=== PATIENT | female | born 1970 | race Caucasian/White ===

== ENCOUNTER 2021-09-04 07:42 | Day surgery (SDC) | payer BC, SELFPAY ==
[2021-08-28 14:07] VITALS: BMI 23.0
--- NOTE | 2021-09-03 08:55 | P.CONAN_ITS ---
Documented by User: Kathleen Rice NP 09/03/21 10:33 HPI - Anesthesia Eval Consult details Narrative: 50yo F for Upper Endoscopy and Colonoscopy hx polysub abuse - ? last used - currently in remission per GI office note [facility] Past Medical History Medical History ADHD Anxiety Barretts esophagus History of alcohol abuse History of substance abuse Surgical History Surgical History (Updated 09/04/21 @ 07:53 by Ericka Somers RN) History of tonsillectomy History of tubal ligation Hx of esophagogastroduodenoscopy Social History Social History Patient Tobacco Use Status: Former Tobacco user Quit Date: 1 yr ago Tobacco use type: Cigarette Use of substances other than those prescribed or required for medical reasons: No Are you DNR?: No Advance Directives: No Advance Directives Information Provided: Yes Meds Allergies Allergy/AdvReac Type Severity Reaction Status Date / Time Penicillins Allergy Unknown Verified 09/04/21 08:13 Sulfa (Sulfonamide Allergy Unknown Verified 09/04/21 08:13 Antibiotics) Home Medications Medication Instructions Recorded Confirmed Last Taken Type bupropion HCl 300 mg 24 hr tablet, 1 tab PO QAM 08/28/21 08/28/21 Unknown History extended release cetirizine 10 mg tablet (Zyrtec) mg 08/28/21 Unknown History omeprazole 20 mg capsule,delayed 20 mg PO DAILY 08/28/21 08/28/21 Unknown History release Exam Exam Date and Time: September 03, 2021 0855 Height,Weight and Vital Signs: Height 5 ft 4 in Weight 60.781 kg Assessment and Plan Assessment Anesthesia Assessment: Chart Reviewed Documented by User: Rishi Parihs MD 09/13/21 21:47 [facility] Past Medical History Medical History ADHD Anxiety Barretts esophagus History of alcohol abuse History of substance abuse Family History Family history of problems with anesthesia: No Surgical History Surgical History (Updated 09/04/21 @ 07:53 by Ericka Somers RN) History of tonsillectomy History of tubal ligation Hx of esophagogastroduodenoscopy History of Problems with Anesthesia: No Social History Social History Patient Tobacco Use Status: Former Tobacco user Quit Date: 1 yr ago Tobacco use type: Cigarette Use of substances other than those prescribed or required for medical reasons: No Are you DNR?: No Advance Directives: No Advance Directives Information Provided: Yes Meds Allergies Allergy/AdvReac Type Severity Reaction Status Date / Time Penicillins Allergy Unknown Verified 09/04/21 08:13 Sulfa (Sulfonamide Allergy Unknown Verified 09/04/21 08:13 Antibiotics) Home Medications Medication Instructions Recorded Confirmed Last Taken Type bupropion HCl 300 mg 24 hr tablet, 1 tab PO QAM 08/28/21 08/28/21 Unknown History extended release cetirizine 10 mg tablet (Zyrtec) mg 08/28/21 Unknown History omeprazole 20 mg capsule,delayed 20 mg PO DAILY 08/28/21 08/28/21 Unknown History release Exam Airway Mallampati Class: II TM Dist: >3cm Neck ROM: Full Loose/Missing/Broken Teeth: Yes Heart: S1,S2 Lungs: b/l breath sounds Assessment and Plan Assessment Anesthesia Assessment: Anesthesia Plan Discussed Final Anesthetic Review Family History of Problems with Anesthesia: No History of Problems with Anesthesia: No NPO: Yes ASA Class: II Final Preanesthetic Review: Meds/Allgs Chart Reviewed, Consent Obtained/Reviewed and Anes Risks/Benef Reviewed Patient Risk: Intermediate Procedure Risk: Intermediate Anesthetic Plan Anesthetic Plan: MAC: Disposition: Standard PACU
[2021-09-04 08:15] VITALS: BP 108/69; PULSE 70; RESP 15; TEMP 36.3; O2SAT 99
[2021-09-04] MEDS: Lactated Ringers 1,000 ML 100 ML IVCONT (08:27)
--- NOTE | 2021-09-04 09:35 | PM.OP ---
Brief Operative Note Date of Service: 09/04/21 Pre-op diagnosis: barretts,screening Post-op diagnosis: same (gastritis, colon polyp) Procedure: egd, colon Surgeon: Derek Castro Anesthesia: MAC Was an Lozenge Maker Helper used for this Procedure?: No Estimated blood loss (mL): 2 Pathology: other (see req) Condition: stable Disposition: PACU
[2021-09-04 09:41] VITALS: BP 98/56; PULSE 67; RESP 17; TEMP 36.8; O2SAT 99
--- NOTE | 2021-09-04 09:42 | MHC.SHP ---
Pre-Procedural Eval Section A Date of Service: 09/04/21 Section B Chief Complaint: Taylor's esophagus without dysplasia,screening Details of Present Illness: see H&P no changes Relevant Family History (Specify if Yes): No Relevant Social History: None Present Medications: see Short Stay Collaborative assessment Medical History: No relevant PMH History of Previous Operations: No relevant previous surgery Allergies: Allergies Allergy/AdvReac Type Severity Reaction Status Date / Time Penicillins Allergy Unknown Verified 09/04/21 08:13 Sulfa (Sulfonamide Allergy Unknown Verified 09/04/21 08:13 Antibiotics) Review of Systems Sugical H&P ROS: Negative: Constitution, Cardiovascular, Respiratory, Neurological, Psychiatric, Hem-Onc, Allergic/Immunologic, Gastrointestinal, Genitourinary, Musculoskeletal, Integumentary, Endocrine and Eyes/Ears/Nose/Throat Exam Surgical H&P Exam: Normal: HEENT, Normal: Heart, Normal: Lungs, Normal: Extremities, Normal: Abdomen, Normal: Skin and Normal: Neurological Plan Diagnosis/Plan: Unchanged I have reviewed the history and physical and performed a pertinent physical examination on my patient. No changes have occurred unless specified.
--- NOTE | 2021-09-04 09:53 | P.BOP_ITS ---
Brief Operative Note Date of Service: 09/04/21 Pre-op diagnosis: barretts, screening Post-op diagnosis: same (gastritis, colon polyp) Procedure: egd, colon Surgeon: Derek Castro Anesthesia: MAC Was an Microbiological Analyst used for this Procedure?: No Estimated blood loss (mL): 2 Pathology: other Condition: stable Disposition: PACU
[2021-09-04 09:59] VITALS: BP 104/62; PULSE 74; RESP 16; TEMP 36.8; O2SAT 99
--- NOTE | 2021-09-04 13:32 | OP_ITS ---
SURGEON: Derek Castro MD INDICATIONS: 1. Taylor esophagus. 2. Colon cancer screening. PREOPERATIVE DIAGNOSIS: POSTOPERATIVE DIAGNOSIS: PROCEDURE PERFORMED: 1. Upper endoscopy with biopsy. 2. Colonoscopy to the terminal ileum with biopsy. ESTIMATED BLOOD LOSS: COMPLICATIONS: ANESTHESIA: ASSISTANTS: SPECIMENS: MEDICATIONS: Monitored anesthesia care. DESCRIPTION OF PROCEDURE: History and physical were performed. The risks and benefits of the procedure were explained to the patient. Informed consent was obtained. The patient was placed in the left lateral decubitus position. The Olympus video gastroscope was introduced into the esophagus, stomach, and duodenum. Examination was performed and the scope was removed. She was repositioned for colonoscopy. A digital rectal exam was performed and was found to be normal. The Olympus pediatric video colonoscope was introduced into the rectum and advanced to the cecum without difficulty. The cecum was identified by transillumination, palpation, and identification of ileocecal valve. Examination was performed. The scope was removed. She tolerated both procedures well, returned to recovery area in stable condition. FINDINGS: UPPER ENDOSCOPY: Esophagus: The esophagus was normal. There was a 2 cm area of Taylor esophagus with no raised lesions or ulcerated areas. Biopsies were obtained in all 4 quadrants at 39 and 37 cm. Stomach: There were some linear streaks of erythema consistent with mild gastritis. No ulcer was seen. Duodenum: The bulb and second portion were normal. COLONOSCOPY: The terminal ileum was normal. The visualized colonic mucosa was normal. There was a small flat hyperplastic appearing polyp at about 65 cm from the anal verge. This was removed with biopsy forceps. No other polyps were identified. There was mild sigmoid diverticulosis. Retroflexed examination showed some small internal hemorrhoids. The quality of prep was good. IMPRESSION: 1. Taylor esophagus. 2. Gastritis. 3. Colon polyp. RECOMMENDATION: Follow up the biopsy results. MD GORAN Nazario/BOSSMAN / [id number]
== END 2021-09-04 10:55 | disposition home or self-care (01) ==
PROVIDERS: PCP Physician Assistant; Visit Provider Internal Medicine Gastroenterology
PROC: (CPT 45380; principal; 2021-09-04 08:40)
DX: Z12.11 Encounter for screening for malignant neoplasm of colon (principal); K63.5 Polyp of colon; K57.30 Diverticulosis of large intestine without perforation or abscess without bleeding; K64.8 Other hemorrhoids; K22.70 Barrett's esophagus without dysplasia; K29.50 Unspecified chronic gastritis without bleeding; F90.9 Attention-deficit hyperactivity disorder, unspecified type; F41.9 Anxiety disorder, unspecified; F10.11 Alcohol abuse, in remission; F19.11 Other psychoactive substance abuse, in remission; Z87.891 Personal history of nicotine dependence; Z79.899 Other long term (current) drug therapy; Z88.0 Allergy status to penicillin; Z88.2 Allergy status to sulfonamides
CPT/HCPCS: 45380; 43239; 88305; 88313; J2250; J2370; J3010